=== PATIENT | male | born 1985 ===

== ENCOUNTER 2017-08-15 10:29 | Emergency (ER) | payer OTHER ==
[2017-08-15 10:46] VITALS: BP 146/88; PULSE 63; O2SAT 100
[2017-08-15 10:47] VITALS: BMI 22.4
[2017-08-15 10:56] VITALS: RESP 16; TEMP 97.9
[2017-08-15] MEDS ORDERED: Albuterol 0.083% Inhal Sol (2.5 mg/3 mL) UD INH STA (11:18)
--- NOTE | 2017-08-15 11:18 | ED PDOC ---
HPI: CCC, URI, Sore Throat Time Seen by Provider: 08/15/17 11:03 Chief Complaint (Nursing): Cough, Cold, Congestion Chief Complaint (Provider): SOB, cough History Per: Patient History/Exam Limitations: no limitations Onset/Duration Of Symptoms: Days Additional Complaint(s): Pt seen in ER 3 days ago and diagnosed with influenza. Pt reports continued SOB and cough. Past Medical History Reviewed: Historical Data, Nursing Documentation, Vital Signs Vital Signs: Last Vital Signs Temp 97.9 F 08/15/17 10:55 Pulse 63 08/15/17 10:55 Resp 16 08/15/17 10:55 BP 146/88 08/15/17 10:55 Pulse Ox 100 08/15/17 11:22 - Medical History PMH: No Chronic Diseases - Surgical History Surgical History: No Surg Hx - Family History Family History: States: No Known Family Hx - Living Arrangements Living Arrangements: With Family - Social History Alcohol: > 2 Drinks/Day - Home Medications Home Medications: Ambulatory Orders Medication Instructions Recorded Albuterol HFA [Ventolin HFA 90 1 puff IH BID PRN #1 unit 08/15/17 mcg/actuation (8 g)] Guaifen/Phenyleph/Acetaminophn 1 tab PO BID #14 tab 08/15/17 [Mucinex Fast-Max Cold & Sinus 325 mg-200 mg-5] - Allergies Allergies/Adverse Reactions: Allergies Allergy/AdvReac Type Severity Reaction Status Date / Time No Known Allergies Allergy Verified 08/15/17 10:54 Review of Systems ROS Statement: Except As Marked, All Systems Reviewed And Found Negative Constitutional: Negative for: Fever, Chills Respiratory: Positive for: Cough, Shortness of Breath Physical Exam - Reviewed Nursing Documentation Reviewed: Yes Vital Signs Reviewed: Yes - Physical Exam Appears: Positive for: Well, Non-toxic, No Acute Distress Head Exam: Positive for: ATRAUMATIC, NORMAL INSPECTION, NORMOCEPHALIC Skin: Positive for: Normal Color, Warm, DRY Eye Exam: Positive for: Normal appearance ENT: Positive for: Normal ENT Inspection Neck: Positive for: Normal, Painless ROM Cardiovascular/Chest: Positive for: Regular Rate, Rhythm Respiratory: Positive for: Normal Breath Sounds. Negative for: Accessory Muscle Use, Stridor, Wheezing, Respiratory Distress Gastrointestinal/Abdominal: Positive for: Normal Exam, Bowel Sounds, Soft Back: Positive for: Normal Inspection Extremity: Positive for: Normal ROM Neurologic/Psych: Positive for: Alert, Oriented - ECG O2 Sat by Pulse Oximetry: 100 Disposition - Clinical Impression Clinical Impression: Influenza - Patient ED Disposition Is Patient to be Admitted: No Counseled Patient/Family Regarding: Diagnosis, Need For Followup, Rx Given - Disposition Disposition: Routine/Home Disposition Time: 13:00 Condition: GOOD Prescriptions: Albuterol HFA [Ventolin HFA 90 mcg/actuation (8 g)] 1 puff IH BID PRN #1 unit PRN Reason: Shortness Of Breath Guaifen/Phenyleph/Acetaminophn [Mucinex Fast-Max Cold & Sinus 325 mg-200 mg-5] 1 tab PO BID #14 tab Instructions: Influenza (ED) Forms: [facility] (Citizen [place]) Print Language: CROATIAN
[2017-08-15] MEDS ORDERED: Albuterol 0.083% Inhal Sol (2.5 mg/3 mL) UD ONE (11:30)
--- NOTE | 2017-08-15 12:40 | RAD ---
HISTORY: influenza, cough, SOB COMPARISON: No prior. TECHNIQUE: Chest PA and lateral FINDINGS: LUNGS: No active pulmonary disease. PLEURA: No significant pleural effusion identified. No pneumothorax apparent. CARDIOVASCULAR: Normal. OSSEOUS STRUCTURES: No significant abnormalities. VISUALIZED UPPER ABDOMEN: Normal. OTHER FINDINGS: None. IMPRESSION: No acute cardiopulmonary disease appreciated.
== END 2017-08-15 13:20 | disposition home or self-care (01) ==
LOC: H.ER 10:29
DX: J11.1 Influenza due to unidentified influenza virus with other respiratory manifestations (principal)